=== PATIENT | male | born 1970 | race Caucasian/White ===

== ENCOUNTER 2019-10-26 12:03 | Inpatient (IN) ==
[2019-10-26] MEDS ORDERED: 0.2 MICRON FILTER SET 1 EA IV ONE (12:15)
[2019-10-26] MEDS ORDERED: SODIUM CHLORIDE 0.9% 1000ML 1,000 ML IV SCH (12:15)
[2019-10-26] MEDS ORDERED: AMIODARONE / D5W 360 MG/200 ML BAG IV SCH (12:15)
--- NOTE | 2019-10-26 12:21 | Emergency Department Note ---
Impression & Plan Syncope, Sinus pause, Sick sinus syndrome ED Provider Note NAME: HAWA SHAH AGE: 49 SEX: M : 1970 ARRIVES VIA: Ambulance INFORMANT: Patient, ED PROVIDER(S): Marky Magana MD Chief Complaint: Syncope HPI: Patient recently traveled from [place] via car and is visiting family locally. The patient has had 3 episodes of syncope today. The patient initially try to get a shower and had an episode of syncope that was brief. Witnessed syncope for several seconds by BLS and then had a subsequent syncopal event prior to arrival in route. The patient was reportedly apneic and pulseless. CPR was initiated and the patient did have resumption of spontaneous circulation. I did advise loading with amiodarone. Patient only has a history of hypertension and back pain for which she takes lisinopril and Mobic respectively. Patient denies any leg swelling, chest pains, shortness of breath currently. Patient reportedly has had some diaphoresis associated dry cough and fatigue. ROS: See HPI for pertinent positives and negatives. A total of 10 systems were reviewed and otherwise negative. Past medical history: See below Surgical history: See below Social history: See below Physical Exam: GENERAL: NAD, non-toxic. EYE EXAM: Normal conjunctiva. PERRL, no anisocoria and EOM's grossly intact w/o pain. NECK: Supple, no nuchal rigidity, no adenopathy, non-tender. No signs of meningismus. LUNGS: Clear to auscultation. Normal chest wall mechanics. HEART: NSR, no MRG. ABDOMEN: Abdomen soft, non-tender, normo-active bowel sounds, no masses, no rebound or guarding. BACK: No CVA TTP. SKIN: No rashes and no bruising. UPPER EXTREMITIES: Upper extremities are grossly normal. LOWER EXTREMITIES: Grossly normal, no edema. Negative Homans sign bilaterally. NEURO EXAM: A&O x3, cranial nerves II-XII grossly intact, normal speech, moves all 4 extremities on command w/o issue. Differential diagnoses: Vasovagal event, dehydration, infection, hypoglycemia, electrolyte abnormalities, cardiac sources, intracerebral event, pulmonary embolism, seizure, toxicologic, neurologic, as well as other pathologies. Course: Patient was seen and evaluated the bedside. Full history physical exam was performed. EKG: Indication: Syncope Prehospital EKG was read as sinus bradycardia rate of 52 with normal intervals and axis, possible trace elevation in aVF but not in contiguous leads and associ ated T wave inversion in lead III. Repeat EKG in hospital at 12:24 PM. Sinus bradycardia, rate of 59, normal intervals, normal axis, no obvious ST changes, T WI in lead III. No obvious arrhythmia. No dropped beats noted. Imaging Studies: Radiology results as stated below per my review in the radiologist's interpretation: XR chest 1V portable CLINICAL HISTORY: Chest Pain dyspnea COMPARISON STUDY: No previous studies for comparison. FINDINGS: The bones soft tissues and hemidiaphragms are normal. The cardiomediastinal silhouette is normal. The lungs are clear. The pulmonary vasculature is normal. IMPRESSION: Negative chest. ACT 112: Negative or not required by law. The above report was generated using voice recognition software. It may contain grammatical, syntax or spelling errors. Electronically signed by: Ever Holden M.D. 10/26/2019 1:05 PM Dictated: 10/26/19 1304 Transcribed: 10/26/19 1304 Cardiac monitoring: An order was placed for continuous cardiac monitoring. The monitor shows a rate of 62 with sinus rhythm. MDM: Patient was seen in [facility] at the bedside. The patient did have blood work completed immediately along with a [id number] BMP and troponin. Pads were placed. The patient is currently asymptomatic. The patient has a normal white count H&H and platelet count. The patient's kidney function is unremarkable. Borderline elevated blood glucose but not a fasting. Phosphorus is low which is ordered for replacement. Troponin is und etectable. TSH is not elevated. I did immediately speak to Dr. Lucas James cardiology who kindly came and evaluated patient the bedside. We did discuss any additional treatments which we would hold off at this time. Labs currently pending. Echo has been ordered. I did speak the on-call hospitalist Dr. Shahid who agreed to evaluate treat the patient. The patient was subsequently mated to the medicine service for concern for sick sinus syndrome. Critical Care: I have personally spent 82 minutes of critical care time in direct management of this patient. This includes bedside care, interpretation of diagnostic studies, and testing, discussion with consultants, patient, and family members, and other require inpatient management activities. This 82 minutes is in excess of all s eparately billable procedures. Past Med/Surg History Medical History Back pain H/O: HTN (hypertension) Surgical History H/O: vasectomy No pertinent past surgical history Family History Father Stroke Grandfather Heart disease Social History Preferred Language: Panamanian Communication Ability: Effective Correctional Officer Required: No Beliefs That Will Affect Care: None Current Living Situation: Spouse and Family current occupational status: employed current occupation: Works at [employer] Other Information That Helps Us Care for You: No Feels Safe at Home: Yes Safety Concerns: Feels Safe At This Time Smoking Status: Former smoker Hx Alcohol Use: No Hx Substance Use: No Allergies Allergies Allergy/AdvReac Type Severity Reaction Status Date / Time No Known Allergies Allergy Unverified 10/26/19 13:28 Home Meds Home Medications Medication Instructions Recorded Confirmed acetaminophen [Tylenol] 650 mg PO QAM 10/26/19 10/26/19 lisinopril 40 mg PO QAM 10/26/19 10/26/19 meloxicam 15 mg PO QAM 10/26/19 10/26/19 Results & Data (ED) Vital Signs Vital Signs - 24 hr 10/26/19 12:14 10/26/19 12:18 10/26/19 12:26 Temperature 36.7 C Temperature Source Oral Pulse Rate 76 52 L 53 L Pulse Rate from SpO2 Sensor 52 L 53 L Pulse Rhythm Regular Pulse Strength Normal Respiratory Rate 18 Respiratory Effort / Characteristics Non-Labored Spontaneous Respiratory Depth Normal Blood Pressure 116/74 106/68 109/64 Blood Pressure Mean 88 74 77 Blood Pressure Position Lying Pulse Oximetry 98 99 98 Oxygen Delivery Method Nasal Cannula Oxygen Flow Rate 2 Sepsis Recent Fever Within 48 Hours No Sepsis New/Unexplained Change in Mental Status No Sepsis Action Taken by Nursing No Action Required 10/26/19 12:30 10/26/19 12:35 10/26/19 12:40 Temperature Temperature Source Pulse Rate 69 65 68 Pulse Rate from SpO2 Sensor 69 66 68 Pulse Rhythm Pulse Strength Respiratory Rate Respiratory Effort / Characteristics Respiratory Depth Blood Pressure 112/68 116/71 117/71 Blood Pressure Mean 79 82 84 Blood Pressure Position Pulse Oximetry 100 99 100 Oxygen Delivery Method Nasal Cannula Nasal Cannula Oxygen Flow Rate 2 2 Sepsis Recent Fever Within 48 Hours Sepsis New/Unexplained Change in Mental Status Sepsis Action Taken by Nursing 10/26/19 12:45 10/26/19 12:50 10/26/19 12:55 Temperature Temperature Source Pulse Rate 64 66 62 Pulse Rate from SpO2 Sensor 64 66 63 Pulse Rhythm Pulse Strength Respiratory Rate Respiratory Effort / Characteristics Respiratory Depth Blood Pressure 114/69 109/71 113/69 Blood Pressure Mean 76 82 80 Blood Pressure Position Pulse Oximetry 100 100 100 Oxygen Delivery Method Nasal Cannula Nasal Cannula Oxygen Flow Rate 2 2 Sepsis Recent Fever Within 48 Hours Sepsis New/Unexplained Change in Mental Status Sepsis Action Taken by Nursing 10/26/19 13:00 10/26/19 13:05 10/26/19 13:10 Temperature Temperature Source Pulse Rate 65 79 64 Pulse Rate from SpO2 Sensor 63 79 65 Pulse Rhythm Pulse Strength Respiratory Rate Respiratory Effort / Characteristics Respiratory Depth Blood Pressure 123/76 120/74 115/71 Blood Pressure Mean 96 90 82 Blood Pressure Position Pulse Oximetry 100 93 100 Oxygen Delivery Method Oxygen Flow Rate Sepsis Recent Fever Within 48 Hours Sepsis New/Unexplained Change in Mental Status Sepsis Action Taken by Nursing 10/26/19 13:15 10/26/19 13:20 10/26/19 13:25 Temperature Temperature Source Pulse Rate 77 66 61 Pulse Rate from SpO2 Sensor 77 68 62 Pulse Rhythm Pulse Strength Respiratory Rate Respiratory Effort / Characteristics Respiratory Depth Blood Pressure 111/67 112/68 110/70 Blood Pressure Mean 76 74 79 Blood Pressure Position Pulse Oximetry 98 100 100 Oxygen Delivery Method Oxygen Flow Rate Sepsis Recent Fever Within 48 Hours Sepsis New/Unexplained Change in Mental Status Sepsis Action Taken by Nursing 10/26/19 13:30 10/26/19 13:35 10/26/19 13:40 Temperature Temperature Source Pulse Rate 66 60 57 L Pulse Rate from SpO2 Sensor 64 60 59 L Pulse Rhythm Pulse Strength Respiratory Rate Respiratory Effort / Characteristics Respiratory Depth Blood Pressure 110/69 111/65 107/66 Blood Pressure Mean 81 73 74 Blood Pressure Position Pulse Oximetry 98 100 100 Oxygen Delivery Method Oxygen Flow Rate Sepsis Recent Fever Within 48 Hours Sepsis New/Unexplained Change in Mental Status Sepsis Action Taken by Nursing 10/26/19 13:45 10/26/19 13:50 10/26/19 13:55 Temperature Temperature Source Pulse Rate 61 60 60 Pulse Rate from SpO2 Sensor 62 60 60 Pulse Rhythm Pulse Strength Respiratory Rate Respiratory Effort / Characteristics Respiratory Depth Blood Pressure 109/66 109/68 113/68 Blood Pressure Mean 72 79 79 Blood Pressure Position Pulse Oximetry 100 100 100 Oxygen Delivery Method Oxygen Flow Rate Sepsis Recent Fever Within 48 Hours Sepsis New/Unexplained Change in Mental Status Sepsis Action Taken by Nursing 10/26/19 14:00 10/26/19 14:05 10/26/19 14:10 Temperature Temperature Source Pulse Rate 63 74 72 Pulse Rate from SpO2 Sensor 64 75 74 Pulse Rhythm Pulse Strength Respiratory Rate Respiratory Effort / Characteristics Respiratory Depth Blood Pressure 122/70 123/76 125/73 Blood Pressure Mean 82 84 89 Blood Pressure Position Pulse Oximetry 100 100 100 Oxygen Delivery Method Oxygen Flow Rate Sepsis Recent Fever Within 48 Hours Sepsis New/Unexplained Change in Mental Status Sepsis Action Taken by Usp Medications Current Medication List: was personally reviewed by me Laboratory Data Attestation: I reviewed the patient's lab results. Result diagrams: 10/26/19 12:10 10/26/19 12:10 Lab Results 10/26/19 10/26/19 10/26/19 Range/Units 12:10 12:10 12:10 WBC 9.24 (4.8-10.8) K/uL RBC 4.94 (4.7-6.1) M/uL Hgb 15.3 (14.0-18.0) g/dL POC Hgb (14.0-18.0) g/dl Hct 43.8 (42-52) % POC Hct (42-52) % MCV 88.7 (80-100) fL MCH 31.0 (25-34) pg MCHC 34.9 (32-36) g/dL RDW Std Deviation 43.4 (36.4-46.3) fL RDW Coeff of Pastora 13.3 (11.5-14.5) % Plt Count 239 (130-400) K/uL MPV 10.7 H (7.4-10.4) fL Immature Gran % (Auto) 0.3 % Neut % (Auto) 84.7 % Lymph % (Auto) 11.8 % Stephenson % (Auto) 2.9 % Eos % (Auto) 0.2 % Baso % (Auto) 0.1 % Neut # (Auto) 7.82 H (1.4-6.5) K/uL Lymph # (Auto) 1.09 L (1.2-3.4) K/uL Stephenson # (Auto) 0.27 (0.11-0.59) K/uL Eos # (Auto) 0.02 (0-0.5) K/uL Baso # (Auto) 0.01 (0-0.2) K/uL Immature Gran # (Auto) 0.03 H (0.00-0.02) K/uL PT 10.6 (9.0-12.0) Seconds INR 1.0 (0.9-1.1) APTT 24.6 (21.0-31.0) Seconds PTT Ratio 0.9 POC Sodium (135-144) mmol/L Sodium 142 (136-145) mmol/L POC Potassium (3.3-5.0) mmol/L Potassium 4.0 (3.5-5.1) mmol/L POC Chloride (101-112) mmol/L Chloride 109 H (98-107) mmol/L Carbon Dioxide 27 (21-32) mmol/L POC Total CO2 (24-31) mmol/L Anion Gap 6.0 (3-11) POC Anion Gap (16-25) mmol/L POC BUN (7-18) mg/dl BUN 15 (7-18) mg/dl Creatinine 1.13 (0.6-1.4) mg/dl POC Creatinine (0.6-1.3) mg/dl Est Cr Clr Drug Dosing Not Reportable Est GFR ( Amer) 88.6 Est GFR (Non-Af Amer) 76.4 BUN/Creatinine Ratio 13.2 (10-20) Glucose 149 H (70-99) mg/dl POC Glucose (other) (70-99) mg/dl Calcium 9.0 (8.5-10.1) mg/dl POC Ioniz Calcium William (1.12-1.32) mmol/l Phosphorus 1.7 L (2.5-4.9) mg/dl Magnesium 2.1 (1.8-2.4) mg/dl Total Bilirubin 0.4 (0.2-1) mg/dl AST 14 L (15-37) U/L ALT 36 (12-78) U/L Alkaline Phosphatase 59 (45-117) U/L POC Troponin I (0-0.045) ng/ml Troponin I < 0.015 (0-0.045) ng/ml Total Protein 7.5 (6.4-8.2) gm/dl Albumin 3.8 (3.4-5.0) gm/dl Globulin 3.7 (2.5-4.0) gm/dl Albumin/Globulin Ratio 1.0 (0.9-2) Lipase 83 (73-393) U/L TSH (0.300-4.500) uIu/ml Lyme Disease IgG Ab (Negative) Lyme Disease IgM Ab (Negative) COVID-19 PCR (Negative) 10/26/19 10/26/19 10/26/19 Range/Units 12:10 12:10 12:16 WBC (4.8-10.8) K/uL RBC (4.7-6.1) M/uL Hgb (14.0-18.0) g/dL POC Hgb (14.0-18.0) g/dl Hct (42-52) % POC Hct (42-52) % MCV (80-100) fL MCH (25-34) pg MCHC (32-36) g/dL RDW Std Deviation (36.4-46.3) fL RDW Coeff of Pastora (11.5-14.5) % Plt Count (130-400) K/uL MPV (7.4-10.4) fL Immature Gran % (Auto) % Neut % (Auto) % Lymph % (Auto) % Stephenson % (Auto) % Eos % (Auto) % Baso % (Auto) % Neut # (Auto) (1.4-6.5) K/uL Lymph # (Auto) (1.2-3.4) K/uL Stephenson # (Auto) (0.11-0.59) K/uL Eos # (Auto) (0-0.5) K/uL Baso # (Auto) (0-0.2) K/uL Immature Gran # (Auto) (0.00-0.02) K/uL PT (9.0-12.0) Seconds INR (0.9-1.1) APTT (21.0-31.0) Seconds PTT Ratio POC Sodium (135-144) mmol/L Sodium (136-145) mmol/L POC Potassium (3.3-5.0) mmol/L Potassium (3.5-5.1) mmol/L POC Chloride (101-112) mmol/L Chloride (98-107) mmol/L Carbon Dioxide (21-32) mmol/L POC Total CO2 (24-31) mmol/L Anion Gap (3-11) POC Anion Gap (16-25) mmol/L POC BUN (7-18) mg/dl BUN (7-18) mg/dl Creatinine (0.6-1.4) mg/dl POC Creatinine (0.6-1.3) mg/dl Est Cr Clr Drug Dosing Est GFR ( Amer) Est GFR (Non-Af Amer) BUN/Creatinine Ratio (10-20) Glucose (70-99) mg/dl POC Glucose (other) (70-99) mg/dl Calcium (8.5-10.1) mg/dl POC Ioniz Calcium William (1.12-1.32) mmol/l Phosphorus (2.5-4.9) mg/dl Magnesium (1.8-2.4) mg/dl Total Bilirubin (0.2-1) mg/dl AST (15-37) U/L ALT (12-78) U/L Alkaline Phosphatase (45-117) U/L POC Troponin I (0-0.045) ng/ml Troponin I (0-0.045) ng/ml Total Protein (6.4-8.2) gm/dl Albumin (3.4-5.0) gm/dl Globulin (2.5-4.0) gm/dl Albumin/Globulin Ratio (0.9-2) Lipase (73-393) U/L TSH 0.936 (0.300-4.500) uIu/ml Lyme Disease IgG Ab Negative (Negative) Lyme Disease IgM Ab Negative (Negative) COVID-19 PCR NEGATIVE (Negative) 10/26/19 10/26/19 Range/Units 12:23 12:23 WBC (4.8-10.8) K/uL RBC (4.7-6.1) M/uL Hgb (14.0-18.0) g/dL POC Hgb 15.0 (14.0-18.0) g/dl Hct (42-52) % POC Hct 44 (42-52) % MCV (80-100) fL MCH (25-34) pg MCHC (32-36) g/dL RDW Std Deviation (36.4-46.3) fL RDW Coeff of Pastora (11.5-14.5) % Plt Count (130-400) K/uL MPV (7.4-10.4) fL Immature Gran % (Auto) % Neut % (Auto) % Lymph % (Auto) % Stephenson % (Auto) % Eos % (Auto) % Baso % (Auto) % Neut # (Auto) (1.4-6.5) K/uL Lymph # (Auto) (1.2-3.4) K/uL Stephenson # (Auto) (0.11-0.59) K/uL Eos # (Auto) (0-0.5) K/uL Baso # (Auto) (0-0.2) K/uL Immature Gran # (Auto) (0.00-0.02) K/uL PT (9.0-12.0) Seconds INR (0.9-1.1) APTT (21.0-31.0) Seconds PTT Ratio POC Sodium 142 (135-144) mmol/L Sodium (136-145) mmol/L POC Potassium 3.9 (3.3-5.0) mmol/L Potassium (3.5-5.1) mmol/L POC Chloride 104 (101-112) mmol/L Chloride (98-107) mmol/L Carbon Dioxide (21-32) mmol/L POC Total CO2 25 (24-31) mmol/L Anion Gap (3-11) POC Anion Gap 17.0 (16-25) mmol/L POC BUN 16 (7-18) mg/dl BUN (7-18) mg/dl Creatinine (0.6-1.4) mg/dl POC Creatinine 1.0 (0.6-1.3) mg/dl Est Cr Clr Drug Dosing Est GFR ( Amer) Est GFR (Non-Af Amer) BUN/Creatinine Ratio (10-20) Glucose (70-99) mg/dl POC Glucose (other) 154 H (70-99) mg/dl Calcium (8.5-10.1) mg/dl POC Ioniz Calcium William 1.25 (1.12-1.32) mmol/l Phosphorus (2.5-4.9) mg/dl Magnesium (1.8-2.4) mg/dl Total Bilirubin (0.2-1) mg/dl AST (15-37) U/L ALT (12-78) U/L Alkaline Phosphatase (45-117) U/L POC Troponin I < 0.03 (0-0.045) ng/ml Troponin I (0-0.045) ng/ml Total Protein (6.4-8.2) gm/dl Albumin (3.4-5.0) gm/dl Globulin (2.5-4.0) gm/dl Albumin/Globulin Ratio (0.9-2) Lipase (73-393) U/L TSH (0.300-4.500) uIu/ml Lyme Disease IgG Ab (Negative) Lyme Disease IgM Ab (Negative) COVID-19 PCR (Negative) Administered Medications Potassium Phosphate 21 mmol/ (Sodium Chloride) 507 mls @ 88 mls/hr IV 1315 ONE Stop: 10/26/19 19:00 Last Admin: 10/26/19 13:18 Dose: 88 mls/hr Documented by: [id number] Potassium Chloride/Sodium Chloride (Normal Saline W/20 Meq Kcl) 20 meq in 1,000 mls @ 100 mls/hr IV .Q10H NNAMDI Stop: 11/25/19 16:59 Last Admin: 10/26/19 16:42 Dose: 100 mls/hr Documented by: [id number] Discontinued Medications Epinephrine HCl (Epinephrine) Confirm Administered Dose 1 mg IV .STK-MED ONE Stop: 10/26/19 12:27 Last Admin: 10/26/19 15:26 Dose: Not Given Documented by: [id number] Amiodarone HCl/Dextrose (Nexterone / D5w) 360 mg in 200 mls @ 33.3 mls/hr IV .Q6H1M NNAMDI Stop: 11/25/19 12:14 Last Admin: 10/26/19 13:32 Dose: Not Given Documented by: [id number] Sodium Chloride (Nss 1000ml) 1,000 mls @ 999 mls/hr IV .Q1H1M NNAMDI Stop: 10/26/19 13:15 Last Infusion: 10/26/19 13:26 Dose: 0 mls/hr Documented by: [id number] Admin: 10/26/19 12:26 Dose: 999 mls/hr Documented by: [id number] Magnesium Sulfate/Dextrose (Magnesium Sulfate / D5w) Confirm Administered Dose 1 gm IV .STK-MED ONE Stop: 10/26/19 12:27 Last Admin: 10/26/19 15:26 Dose: Not Given Documented by: [id number] Sodium Phosphate (Sodium Phosphate Replacement) 21 mmol IV NOW STA Stop: 10/26/19 12:50 Last Admin: 10/26/19 15:40 Dose: 21 mmol Documented by: [id number] Discharge Plan Visit Data *Final* Discharge Date/Time: 10/26/19 15:14 Chief Complaint: Syncope Stated Complaint: syncope/diaphoretic ED Provider: Marky Magana Discharge Problem: Syncope, Sinus pause, Sick sinus syndrome Patient Disposition: Admitted As Inpatient Discharge Instructions Interventions: ED Discharge Assessment Last Done: 10/26/19 15:14 Discharge Problem: Syncope Qualifiers: Syncope type: unspecified Qualified Code(s): R55 - Syncope and collapse
[2019-10-26 12:23] LABS: Basophils # (auto) 0.01 K/uL (0-0.2); Basophils % (auto) 0.1 %; Eosinophils # (auto) 0.02 K/uL (0-0.5); Eosinophils % (auto) 0.2 %; Hematocrit (blood only) 43.8 % (42-52); Hemoglobin 15.3 g/dL (14.0-18.0); Immature Granulocytes # (auto) 0.03 K/uL (0.00-0.02); Immature Granulocytes % (auto) 0.3 %; Lymphocytes # (auto) 1.09 K/uL (1.2-3.4); Lymphocytes % (auto) 11.8 %; Mean Corpuscular Hgb Conc 34.9 g/dL (32-36); Mean Corpuscular Volume 88.7 fL (80-100); Mean Platelet Volume 10.7 fL (7.4-10.4); Monocytes # (auto) 0.27 K/uL (0.11-0.59); Monocytes % (auto) 2.9 %; Neutrophils # (auto) 7.82 K/uL (1.4-6.5); Neutrophils % (auto) 84.7 %; Platelet Count 239 K/uL (130-400); RDW Coefficient of Variation 13.3 % (11.5-14.5); RDW Standard Deviation 43.4 fL (36.4-46.3); Red Blood Count 4.94 M/uL (4.7-6.1); White Blood Count 9.24 K/uL (4.8-10.8)
[2019-10-26] MEDS ORDERED: MAGNESIUM SULFATE 1GM / D5W BAG IV ONE (12:26)
[2019-10-26 12:33] LABS: Partial Thromboplastin Ratio 0.9; Partial Thromboplastin Time 24.6 Seconds (21.0-31.0); Prothrombin Time 10.6 Seconds (9.0-12.0)
[2019-10-26 12:38] LABS: Alanine Aminotransferase 36 U/L (12-78); Albumin Level 3.8 gm/dl (3.4-5.0); Aspartate Aminotransferase 14 U/L (15-37); BUN Creatinine Ratio 13.2 (10-20); Blood Urea Nitrogen 15 mg/dl (7-18); Carbon Dioxide 27 mmol/L (21-32); Chloride 109 mmol/L (98-107); Est GFR (African American) 88.6; Est GFR (Non-African American) 76.4; Glucose 149 mg/dl (70-99); Lipase 83 U/L (73-393); Magnesium 2.1 mg/dl (1.8-2.4); Sodium 142 mmol/L (136-145)
[2019-10-26 12:44] LABS: Alkaline Phosphatase 59 U/L (45-117); Bilirubin,Total 0.4 mg/dl (0.2-1); Globulin 3.7 gm/dl (2.5-4.0); Phosphorus 1.7 mg/dl (2.5-4.9); Total Protein 7.5 gm/dl (6.4-8.2); Troponin I < 0.015 ng/ml (0-0.045)
[2019-10-26 12:48] LABS: iSTAT Ionized Calcium 1.25 mmol/l (1.12-1.32); iSTAT Potassium 3.9 mmol/L (3.3-5.0)
[2019-10-26] MEDS ORDERED: SODIUM PHOSPHATE 3 MMOL/1 ML INFUSION IV STA (12:49)
--- NOTE | 2019-10-26 13:06 | XRay Report ---
XR chest 1V portable CLINICAL HISTORY: Chest Pain dyspnea COMPARISON STUDY: No previous studies for comparison. FINDINGS: The bones soft tissues and hemidiaphragms are normal. The cardiomediastinal silhouette is n ormal. The lungs are clear. The pulmonary vasculature is normal. IMPRESSION: Negative chest. ACT 112: Negative or not required by law. The above report was generated using voice recognition software. It may contain grammatical, syntax or spelling errors. Electronically signed by: Ever Holden M.D. 10/26/2019 1:05 PM
[2019-10-26] MEDS ORDERED: POTASSIUM PHOSPHATE 21 MMOL in SODIUM CHLORIDE 0.9% 500 ML IV ONE (13:15)
--- NOTE | 2019-10-26 13:18 | Cardiology Consultation ---
Date of Consultation October 26, 2019 Assessment & Plan (1) Sinus pause: (2) Syncope: Patient presents with several episodes of syncope and near syncope at home. EKG is normal though telemetry demonstrated transient sinus pause with marked bradycardia. No cardiac symptoms though awoke diaphoretic this morning. Has had approximately 6 several days history of preceding cold-like symptoms of malaise, low-grade temperature No severe pain or overt inciting cause. EKGs and enzymes not reflective of acute ischemia. Patient normotensive since presentation Plan maintain telemetry with external pacing patches in place. Agree with laboratory studies as ordered including TSH and Lyme screen. COVID screen pending Will need chest x-ray and echocardiogram as above lab studies clear We will follow in hospital History of Present Illness Reason for Consultation: Syncope, bradycardia Requesting Physician: Dr. Marky Magana History of Present Illness Patient is a 49-year-old male without prior history of cardiac disease underlying issues of chronic back pain and hypertension only. Patient presents now noting having traveled from home in [place] to visit family in the [facility] area. Patient notes last week having early symptoms of cold low-grade fever malaise. Yesterday experienced symptoms of a transient near syncopal event with symptoms resolving on lying down. Today patient awakened with diaphoresis and attempted to proceed to shower only to suffer syncopal event with loss of consciousness. Per report patient had a witnessed syncopal event in route and received transient CPR with spontaneous recovery. Patient did receive single bolus of amiodarone. Prehospital EKG with normal tracing. On ER presentation patient had transient sinus exit block with profound bradycardia and single junctional escape beat with spontaneous recovery. Patient notes no current complaints of chest pain no recent shortness of breath. No prior change in exercise capacity no ambulatory symptoms or discomfort. Physically active about home and job without specific limitation. Notes no rash or skin lesions. No observed tick exposure. No prior history of syncope TIA or stroke. No history of bleeding difficulties. No melena medication dysuria hematuria. Appetite and weight have been generally stable. No headaches or visual changes no dysphasia. Current EKG sinus bradycardia with normal ST segments no Q waves. Normal AV conduction. Initial laboratory studies unrevealing, troponin negative Home medications, Mobic and lisinopril Allergies Allergy/AdvReac Type Severity Reaction Status Date / Time No Known Allergies Allergy Unverified 10/26/19 13:28 Home Medications Home Medications Medication Instructions Recorded Confirmed Type acetaminophen [Tylenol] 650 mg PO QAM 10/26/19 10/26/19 History lisinopril 40 mg PO QAM 10/26/19 10/26/19 History meloxicam 15 mg PO QAM 10/26/19 10/26/19 History Patient History Medical History Back pain H/O: HTN (hypertension) Surgical History H/O: vasectomy No pertinent past surgical history Family History Father Stroke Grandfather Heart disease Social History Preferred Language: Belarusian Communication Ability: Effective Cna Gna Required: No Beliefs That Will Affect Care: None Current Living Situation: Spouse and Family current occupational status: employed current occupation: Works at [employer] Other Information That Helps Us Care for You: No Feels Safe at Home: Yes Safety Concerns: Feels Safe At This Time Smoking Status: Former smoker Hx Alcohol Use: No Hx Substance Use: No Physical Exam Constitutional: WD/WN, vitals as above no acute distress Eyes: PERRL, conjunctivae normal, anicteric sclerae ENMT: external ear and nose normal, oropharynx normal Neck: trachea midline, no thyromegaly Respiratory: normal respiratory effort, lungs clear to auscultation Cardiovascular: Rate/Rhythm: regular rate and regular rhythm Heart Sounds: normal S1 and normal S2; no gallop and no murmur Palpation: normal PMI Vessels: normal carotid upstroke and radial pulses present; no JVD and no carotid bruit Extremities: no edema Gastrointestinal (Abdomen): normal bowel sounds, soft, nontender, no hepatosplenomegaly Musculoskeletal: no cyanosis or clubbing, extremities motor strength 5/5 Skin: no rashes, warm and dry Neurologic: PERRL, EOMI, accommodation nl, no face palsy, no dysarthria Psychiatric: A+Ox3, euthymic affect Results & Data ([facility]) Vital Signs (Past 12 Hours) Vital Signs Temp Pulse Resp BP Pulse Ox 07/14/20 12:50 66 109/71 100 07/14/20 12:45 64 114/69 100 10/26/19 12:40 68 117/71 100 10/26/19 12:35 65 116/71 99 10/26/19 12:30 69 112/68 100 10/26/19 12:26 53 L 109/64 98 10/26/19 12:18 52 L 106/68 99 10/26/19 12:14 36.7 C 76 18 116/74 98 Laboratory Results Laboratory Results - last 24 hr 10/26/19 10/26/19 10/26/19 12:10 12:10 12:10 WBC 9.24 RBC 4.94 Hgb 15.3 POC Hgb Hct 43.8 POC Hct MCV 88.7 MCH 31.0 MCHC 34.9 RDW Std Deviation 43.4 RDW Coeff of Pastora 13.3 Plt Count 239 MPV 10.7 H Immature Gran % (Auto) 0.3 Neut % (Auto) 84.7 Lymph % (Auto) 11.8 [place] % (Auto) 2.9 Eos % (Auto) 0.2 Baso % (Auto) 0.1 Neut # (Auto) 7.82 H Lymph # (Auto) 1.09 L [place] # (Auto) 0.27 Eos # (Auto) 0.02 Baso # (Auto) 0.01 Immature Gran # (Auto) 0.03 H PT 10.6 INR 1.0 APTT 24.6 PTT Ratio 0.9 POC Sodium Sodium 142 POC Potassium Potassium 4.0 POC Chloride Chloride 109 H Carbon Dioxide 27 POC Total CO2 Anion Gap 6.0 POC Anion Gap POC BUN BUN 15 Creatinine 1.13 POC Creatinine Est Cr Clr Drug Dosing Not Reportable Est GFR ( Amer) 88.6 Est GFR (Non-Af Amer) 76.4 BUN/Creatinine Ratio 13.2 Glucose 149 H POC Glucose (other) Calcium 9.0 POC Ioniz Calcium William Phosphorus 1.7 L Magnesium 2.1 Total Bilirubin 0.4 AST 14 L ALT 36 Alkaline Phosphatase 59 POC Troponin I Troponin I < 0.015 Total Protein 7.5 Albumin 3.8 Globulin 3.7 Albumin/Globulin Ratio 1.0 Lipase 83 TSH Lyme Disease IgG Ab Lyme Disease IgM Ab COVID-19 PCR 10/26/19 10/26/19 10/26/19 12:10 12:10 12:16 WBC RBC Hgb POC Hgb Hct POC Hct MCV MCH MCHC RDW Std Deviation RDW Coeff of Past[place] Plt Count MPV Immature Gran % (Auto) Neut % (Auto) Lymph % (Auto) [place] % (Auto) Eos % (Auto) Baso % (Auto) Neut # (Auto) Lymph # (Auto) [place] # (Auto) Eos # (Auto) Baso # (Auto) Immature Gran # (Auto) PT INR APTT PTT Ratio POC Sodium Sodium POC Potassium Potassium POC Chloride Chloride Carbon Dioxide POC Total CO2 Anion Gap POC Anion Gap POC BUN BUN Creatinine POC Creatinine Est Cr Clr Drug Dosing Est GFR ( Amer) Est GFR (Non-Af Amer) BUN/Creatinine Ratio Glucose POC Glucose (other) Calcium POC Ioniz Calcium William Phosphorus Magnesium Total Bilirubin AST ALT Alkaline Phosphatase POC Troponin I Troponin I Total Protein Albumin Globulin Albumin/Globulin Ratio Lipase TSH Pending Lyme Disease IgG Ab Pending Lyme Disease IgM Ab Pending COVID-19 PCR Pending 10/26/19 10/26/19 12:23 12:23 WBC RBC Hgb POC Hgb 15.0 Hct POC Hct 44 MCV MCH MCHC RDW Std Deviation RDW Coeff of Past[place] Plt Count MPV Immature Gran % (Auto) Neut % (Auto) Lymph % (Auto) [place] % (Auto) Eos % (Auto) Baso % (Auto) Neut # (Auto) Lymph # (Auto) [place] # (Auto) Eos # (Auto) Baso # (Auto) Immature Gran # (Auto) PT INR APTT PTT Ratio POC Sodium 142 Sodium POC Potassium 3.9 Potassium POC Chloride 104 Chloride Carbon Dioxide POC Total CO2 25 Anion Gap POC Anion Gap 17.0 POC BUN 16 BUN Creatinine POC Creatinine 1.0 Est Cr Clr Drug Dosing Est GFR ( Amer) Est GFR (Non-Af Amer) BUN/Creatinine Ratio Glucose POC Glucose (other) 154 H Calcium POC Ioniz Calcium William 1.25 Phosphorus Magnesium Total Bilirubin AST ALT Alkaline Phosphatase POC Troponin I < 0.03 Troponin I Total Protein Albumin Globulin Albumin/Globulin Ratio Lipase TSH Lyme Disease IgG Ab Lyme Disease IgM Ab COVID-19 PCR
--- NOTE | 2019-10-26 13:33 | History & Physical Report ---
Date of Service October 26, 2019 Assessment & Plan (1) Sick sinus syndrome: Recurrent Syncope Likely sick sinus syndrome CT head :Pending Monitor in Telemetry for arrhythmia Check Orthostatics Gentle IV fluids Check ECHO, Carotid Ultrasound, EEG Trend cardiac enzymes Fall precautions Appreciate Cardiology Input Avoid AV lior blocking agents Pacer pads EKG in a.m. Monitor electrolytes and replace as needed TSH, Lyme screen pending Urine toxicology pending Hypophosphatemia Replace phosphate Monitor Flulike symptoms Code screen negative Monitor Hypertension Stable Hold lisinopril for now DVT Px: Heparin SQ Code Status Full Code Disposition Monitor in Telemetry History of Present Illness Chief Complaint: Recurrent Syncope Primary Care Provider: NO PCP Patient is a 49-year-old male with history of hypertension, chronic lower back pain and no other significant medical history presents with history of recurrent syncopal episodes. Patient states having flulike symptoms--dry cough, low-grade fever, malaise for the past 1 week. He traveled from [place] to visit family. Patient had a syncopal episode yesterday after using bathroom. He noticed to have developed nausea prior to syncopal. The syncopal event yesterday, was and noticed. Patient had significant diaphoresis this morning. This morning patient tried to wash himself and had another syncopal episode which lasted for about 5 minutes as per family. Had recurrence of nausea prior to syncopal episode. No confusion post syncopal episode noted. 20 minutes after the syncopal episode this morning, he had another syncopal episode which lasted for about 2 to 3 seconds. Patient was found to be apneic, pulseless and also was noted to have transient V. fib as per EMS/ER physician and had CPR which resulted in spontaneous recovery. He was given amiodarone bolus while in ED. He was noted to have 2 episodes of pauses while in ED which spontaneously recovered. Denies any history of chest pain, SOB, palpitations, dizziness, hemoptysis, headache, change in vision, Incontinence, slurred speech, facial deformity, vomiting, abdominal pain, diarrhea, change in appetite, dysuria, hematuria, sick contact, recent change in medications. Allergies Allergy/AdvReac Type Severity Reaction Status Date / Time No Known Allergies Allergy Unverified 10/26/19 13:28 Home Medications Home Medications Medication Instructions Recorded Confirmed Type acetaminophen [Tylenol] 650 mg PO QAM 10/26/19 10/26/19 History lisinopril 40 mg PO QAM 10/26/19 10/26/19 History meloxicam 15 mg PO QAM 10/26/19 10/26/19 History Past Med/Surg History Medical History Back pain H/O: HTN (hypertension) Surgical History H/O: vasectomy No pertinent past surgical history Family History Father Stroke Grandfather Heart disease Social History Preferred Language: Yakut Communication Ability: Effective Chief Radiologic Technologist Required: No Beliefs That Will Affect Care: None Current Living Situation: Spouse and Family current occupational status: employed current occupation: Works at [employer] Other Information That Helps Us Care for You: No Feels Safe at Home: Yes Safety Concerns: Feels Safe At This Time Smoking Status: Former smoker Hx Alcohol Use: No Hx Substance Use: No Review of Systems Review of Systems: All systems reviewed & are unremarkable except as noted in HPI & below Physical Exam Physical Exam: Physical Exam: Vitals signs as noted above General Appearance:Moderately built and nourished, no apparent distress Head: normocephalic, Atraumatic Eyes: normal inspection, EOMI Neck: supple, Trachea midline Respiratory/Chest: Normal breath sounds, CTA, No accessory muscle use Cardiovascular: S1, S2, No murmur Abdomen/GI:Soft, Non tender, Bowel sounds present Extremities/Musculoskelatal:normal inspection, no edema Neurologic/Psych:AAOX3, grossly no focal neurological deficits Skin: normal color, warm Results & Data Results & Data ([facility]) Vital Signs (Past 12 Hours) Vital Signs Temp Pulse Resp BP Pulse Ox 10/26/19 13:25 61 110/70 100 10/26/19 13:20 66 112/68 100 10/26/19 13:15 77 111/67 98 10/26/19 13:10 64 115/71 100 10/26/19 13:05 79 120/74 93 10/26/19 13:00 65 123/76 100 10/26/19 12:55 62 113/69 100 10/26/19 12:50 66 109/71 100 10/26/19 12:45 64 114/69 100 10/26/19 12:40 68 117/71 100 10/26/19 12:35 65 116/71 99 10/26/19 12:30 69 112/68 100 10/26/19 12:26 53 L 109/64 98 10/26/19 12:18 52 L 106/68 99 10/26/19 12:14 36.7 C 76 18 116/74 98 Laboratory Results Short CBC 10/26/19 Range/Units 12:10 WBC 9.24 (4.8-10.8) K/uL Hgb 15.3 (14.0-18.0) g/dL Hct 43.8 (42-52) % Plt Count 239 (130-400) K/uL BMP 10/26/19 12:10 Sodium 142 Potassium 4.0 Chloride 109 H Carbon Dioxide 27 BUN 15 Creatinine 1.13 Glucose 149 H Calcium 9.0 Cardiac Enzymes 10/26/19 Range/Units 12:10 Troponin I < 0.015 (0-0.045) ng/ml Liver Function 10/26/19 Range/Units 12:10 Total Bilirubin 0.4 (0.2-1) mg/dl AST 14 L (15-37) U/L ALT 36 (12-78) U/L Alkaline Phosphatase 59 (45-117) U/L Albumin 3.8 (3.4-5.0) gm/dl Diagnostic Findings CXR:Negative Chest ECG Additional Comments: EKG: Sinus bradycardia, QTC 425
[2019-10-26 14:15] LABS: Lyme Ab IgG w/WB Rflx Negative (Negative); Lyme Ab IgM w/WB Rflx Negative (Negative)
--- NOTE | 2019-10-26 15:39 | Electrocardiogram Report ---
Test Reason : Blood Pressure : / mmHG Vent. Rate : 059 BPM Atrial Rate : 059 BPM P-R Int : 144 ms QRS Dur : 098 ms QT Int : 430 ms P-R-T Axes : 042 -05 020 degrees QTc Int : 425 ms Sinus bradycardia Otherwise normal ECG No previous ECGs available Confirmed by Aureliano Garcia ([id number]) on 10/26/2019 3:39:12 PM Referred By: REFERRED SELF Confirmed By:Santana Garcia
[2019-10-26] MEDS ORDERED: ICU PROTOCOL FOR HYPERGLYCEMIA PRN (15:44)
[2019-10-26] MEDS ORDERED: ATROPINE SULFATE 0.1 MG/ML 10ML SYR IV ONE (15:49)
[2019-10-26] MEDS: NSS + 20MEQ KCL 20 MEQ/1,000 ML BAG IV SCH (16:42)
--- NOTE | 2019-10-26 18:03 | CT Scan Report ---
HEAD CT NONCONTRAST CT DOSE: 537.48 mGy.cm HISTORY: syncope TECHNIQUE: Multiaxial CT images of the head were performed without the use of intravenous contrast. A utomated exposure control was utilized for this study. A dose lowering technique was utilized adheri ng to the principles of ALARA. Comparison: None. Findings: Mild mucosal thickening within the left maxillary sinus. The mastoid air cells are clear. T he calvarium and skull base are intact. The ventricles and sulci are within normal limits. There is n o mass, hematoma, midline shift, or acute infarct. Impression: No acute intracranial abnormality. ACT 112: Negative or not required by law. Electronically signed by: Renny Montoya M.D. 10/26/2019 6:02 PM
[2019-10-26] MEDS: ACETAMINOPHEN 325 MG TAB PO PRN (20:20)
[2019-10-26 21:30] LABS: Adenovirus PCR Not Detected (NotDetected); Bordetella parapertussis PCR Not Detected (NotDetected); Bordetella pertussis PCR Not Detected (NotDetected); Chlamydia pneumoniae PCR Not Detected (NotDetected); Coronavirus 229E PCR Not Detected (NotDetected); Coronavirus HKU1 PCR Not Detected (NotDetected); Coronavirus NL63 PCR Not Detected (NotDetected); Coronavirus OC43PCR Not Detected (NotDetected); Human Metapneumovirus PCR Not Detected (NotDetected); Influenza A PCR Not Detected (NotDetected); Influenza B PCR Not Detected (NotDetected); Mycoplasma pneumoniae PCR Not Detected (NotDetected); Parainfluenza Virus 1 PCR Not Detected (NotDetected); Parainfluenza Virus 2 PCR Not Detected (NotDetected); Parainfluenza Virus 3 PCR Not Detected (NotDetected); Parainfluenza Virus 4 PCR Not Detected (NotDetected); Respiratory Syncytial VirusPCR Not Detected (NotDetected)
[2019-10-26 21:51] LABS: Rhinovirus/Enterovirus PCR DETECTED (NotDetected)
[2019-10-26] MEDS: DOXYCYCLINE HYCLATE 100 MG CAP PO SCH (22:03)
[2019-10-26] MEDS: HEPARIN SOD 5,000 UNIT/0.5 ML VIAL SQ SCH (22:04)
[2019-10-26 23:38] LABS: Amphetamines+Metham, Urine Neg (Neg); Barbiturates, Urine Neg (Neg); Benzodiazepine, Urine Neg (Neg); Cocaine, Urine Neg (Neg); MDMA (Ecstacy), Urine Neg (Neg); Methadone, Urine Neg (Neg); Opiate, Urine Neg (Neg); Phencyclidine, Urine Neg (Neg)
[2019-10-27] MEDS: NSS + 20MEQ KCL 20 MEQ/1,000 ML BAG IV SCH ×2 (02:49→17:07)
[2019-10-27 04:46] LABS: Eosinophils # (auto) 0.05 K/uL (0-0.5); Eosinophils % (auto) 0.6 %; Hematocrit (blood only) 35.4 % (42-52); Hemoglobin 12.3 g/dL (14.0-18.0); Immature Granulocytes # (auto) 0.02 K/uL (0.00-0.02); Immature Granulocytes % (auto) 0.2 %; Lymphocytes # (auto) 1.44 K/uL (1.2-3.4); Lymphocytes % (auto) 17.8 %; Mean Corpuscular Hemoglobin 30.9 pg (25-34); Mean Corpuscular Hgb Conc 34.7 g/dL (32-36); Mean Corpuscular Volume 88.9 fL (80-100); Mean Platelet Volume 9.8 fL (7.4-10.4); Monocytes # (auto) 0.79 K/uL (0.11-0.59); Monocytes % (auto) 9.8 %; Neutrophils # (auto) 5.79 K/uL (1.4-6.5); Neutrophils % (auto) 71.6 %; Platelet Count 177 K/uL (130-400); RDW Coefficient of Variation 13.4 % (11.5-14.5); RDW Standard Deviation 43.5 fL (36.4-46.3); Red Blood Count 3.98 M/uL (4.7-6.1); White Blood Count 8.09 K/uL (4.8-10.8)
[2019-10-27 05:15] LABS: BUN Creatinine Ratio 12.9 (10-20); Blood Urea Nitrogen 12 mg/dl (7-18); Calcium 7.7 mg/dl (8.5-10.1); Carbon Dioxide 26 mmol/L (21-32); Chloride 113 mmol/L (98-107); Creatinine Clr Calc Pharmacy 109.7 ml/min; Est GFR (African American) 109.3; Est GFR (Non-African American) 94.3; Glucose 92 mg/dl (70-99); Magnesium 1.8 mg/dl (1.8-2.4); Potassium 3.5 mmol/L (3.5-5.1); Sodium 144 mmol/L (136-145)
[2019-10-27 05:39] LABS: Chol HDL Ratio 5; Cholesterol 137 mg/dl (0-200); HDL Cholesterol 30 mg/dl; LDL Cholesterol Calculated 87 mg/dl; Phosphorus 2.8 mg/dl (2.5-4.9); Triglycerides 100 mg/dl (0-150); Troponin I < 0.015 ng/ml (0-0.045); VLDL Cholesterol 20 mg/dl
[2019-10-27] MEDS: HEPARIN SOD 5,000 UNIT/0.5 ML VIAL SQ SCH ×3 (05:51→21:14)
[2019-10-27 06:00] LABS: Estimated Average Glucose 111 mg/dl; Hemoglobin A1C 5.5 % (4.5-5.6)
--- NOTE | 2019-10-27 08:07 | Ultrasound Report ---
BILATERAL CAROTID DOPPLER STUDY HISTORY: Syncope COMPARISON: None. TECHNIQUE: Real-time, grayscale, and color Doppler sonography of the carotid arteries was performed. Imaging reviewed in the transverse and longitudinal planes. All measurements were calculated based on NASCET criteria. FINDINGS: Antegrade flow is seen in the bilateral vertebral arteries. The brachial pressures were not obtained. The peak systolic velocity within the right ICA is 173 cm/s proximally. The right systolic ratio is 1 .3. The peak systolic velocity within the left ICA is 187 cm/s proximally. The left systolic ratio is 1.4 . IMPRESSION: Elevated peak systolic velocities within the proximal bilateral internal carotid arteries suggestive of 50-69% stenosis. ACT 112: Negative or not required by law. Electronically signed by: Renny Montoya M.D. 10/27/2019 8:06 AM
[2019-10-27] MEDS: DOXYCYCLINE HYCLATE 100 MG CAP PO SCH ×2 (08:50→21:14)
[2019-10-27] MEDS ORDERED: MIDAZOLAM HCL 5 MG/ML 1 ML VIAL ONE (12:44)
[2019-10-27] MEDS ORDERED: fentaNYL citrate 100 MCG/2 ML VIAL ONE ×2 (12:44→15:03)
[2019-10-27] MEDS ORDERED: CEFAZOLIN 250 MG/ML 1 GM VIAL ONE (12:44)
[2019-10-27] MEDS ORDERED: BACITRACIN INJ 50,000 UNIT VIAL ONE (13:08)
[2019-10-27] MEDS ORDERED: LIDOCAINE HCL 1% 20 ML VIAL ONE ×2 (13:08→13:44)
[2019-10-27] MEDS ORDERED: BUPIVACAINE 0.25% 30 ML VIAL ONE (13:08)
--- NOTE | 2019-10-27 13:09 | History & Physical Bridge Note ---
Date of Service October 27, 2019 History & Physical Bridge Note I have examined the patient, reviewed the History & Physical and in the interval since the performance of the History & Physical I have noted the following changes of clinical significance: pt with intermittent sinus arrest; for a pacemaker; potential risks discussed and consents signed
--- NOTE | 2019-10-27 13:09 | Pre Anesthesia Assessment ---
Date of Service October 27, 2019 Pre Sedation Assessment Vital Signs Temp Pulse Resp BP Pulse Ox 10/27/19 11:09 37.1 C 10/27/19 10:30 69 18 108/64 98 10/27/19 09:30 63 18 116/67 96 10/27/19 08:30 65 23 104/68 96 10/27/19 08:00 65 10/27/19 07:30 60 19 107/67 98 10/27/19 06:30 63 18 104/69 96 10/27/19 05:30 62 16 100/60 95 10/27/19 05:00 65 19 96 10/27/19 04:30 61 16 105/64 96 10/27/19 04:00 37.3 C 61 20 98 10/27/19 03:30 65 16 102/65 97 10/27/19 03:00 66 17 96 10/27/19 02:30 70 17 94/55 L 95 10/27/19 02:00 68 21 96 10/27/19 01:30 66 18 102/59 L 95 10/27/19 01:00 68 22 96 10/27/19 00:30 66 17 105/58 L 97 10/27/19 00:00 37.3 C 63 16 96 10/26/19 23:30 74 21 103/63 97 10/26/19 23:00 76 17 98 10/26/19 22:30 73 15 104/64 97 10/26/19 22:00 75 21 109/54 L 98 10/26/19 21:00 75 22 107/57 L 97 10/26/19 20:00 38 C H 85 21 109/63 97 10/26/19 19:00 85 23 97 10/26/19 18:10 88 19 98 10/26/19 18:00 86 22 98 10/26/19 17:56 87 17 99 10/26/19 17:40 91 H 21 96 10/26/19 17:31 93 H 27 H 96 10/26/19 17:30 87 24 115/73 96 10/26/19 17:20 85 21 95 10/26/19 17:10 85 23 95 10/26/19 17:00 87 19 95 10/26/19 16:50 85 15 94 10/26/19 16:40 92 H 28 H 96 10/26/19 16:31 81 18 96 10/26/19 16:30 83 19 113/77 97 10/26/19 16:20 72 23 94 10/26/19 16:10 80 25 H 96 10/26/19 16:00 78 15 94 10/26/19 15:52 79 16 129/75 92 10/26/19 15:50 72 20 92 10/26/19 15:44 81 10/26/19 15:40 71 18 10/26/19 15:31 73 22 10/26/19 15:30 74 21 132/70 10/26/19 15:29 79 19 10/26/19 15:15 64 105/66 98 10/26/19 15:11 67 96 10/26/19 15:10 65 109/70 98 10/26/19 15:05 73 115/72 100 10/26/19 15:01 69 99 10/26/19 15:00 37.4 C 74 105/65 100 10/26/19 14:55 71 111/67 100 10/26/19 14:50 92 H 127/65 99 10/26/19 14:45 81 124/75 100 10/26/19 14:40 77 113/71 10/26/19 14:35 72 118/71 98 10/26/19 14:30 66 116/73 99 10/26/19 14:25 65 115/76 99 10/26/19 14:20 65 106/65 100 10/26/19 14:15 67 119/66 100 10/26/19 14:10 72 125/73 100 10/26/19 14:05 74 123/76 100 10/26/19 14:00 63 122/70 100 10/26/19 13:55 60 113/68 100 10/26/19 13:50 60 109/68 100 10/26/19 13:45 61 109/66 100 10/26/19 13:40 57 L 107/66 100 10/26/19 13:35 60 111/65 100 10/26/19 13:30 66 110/69 98 1420 13:25 61 110/70 100 14 13:20 66 112/68 100 14 13:15 77 111/67 98 10/26/19 13:10 64 115/71 100 Cardiovascular + regular rhythm Respiratory normal respiratory effort, lungs clear to auscultation Pre-Sedation Airway Assessment Smoking Status: Former smoker Hx Sleep Apnea: No Hx Difficult Intubation: No Short, Thick Neck: No Oral Cavity: + WNL ASA: ASA3 NPO Status Date of Last Intake of Fluids: 10/26/19 Date of Last Intake of Solid Food: 10/26/19 Procedure Planning Contraindications for Sedation: none Current Medications Reviewed: Yes Notes The planned sedation has been discussed with the patient. Informed Consent was obtained. I have identified the patient, determined the appropriateness of sedation and have assessed the patient immediately prior to the procedure. All medicine(s) and interventions are by my order.
--- NOTE | 2019-10-27 14:33 | Electroencephalogram ---
EEG Procedure Note Date of Service October 27, 2019 Start / End Times Start Time: 06:31 End Time: 06:[address] Zehra MD History A 49-year-old male with recurrent syncope. EEG performed for evaluation of epileptiform activity. Home Medication List Home Medications Medication Instructions Recorded Confirmed Type acetaminophen [Tylenol] 650 mg PO QAM 10/26/19 10/26/19 History lisinopril 40 mg PO QAM 10/26/19 10/26/19 History meloxicam 15 mg PO QAM 10/26/19 10/26/19 History Inpatient Medication List Acetaminophen (Tylenol) 650 mg PO Q4H PRN PRN Reason: Pain or Fever Stop: 11/25/19 19:47 Last Admin: 10/26/19 20:20 Dose: 650 mg Documented by: [id number] Doxycycline Hyclate (Vibramycin) 100 mg PO BID [facility]; Protocol Stop: 11/02/19 20:59 Last Admin: 10/27/19 08:50 Dose: 100 mg Documented by: [id number] Admin: 10/26/19 22:03 Dose: 100 mg Documented by: [id number] Heparin Sodium (Porcine) (Heparin Sodium (Porcine)) 5,000 units SQ Q8 [facility] Stop: 11/25/19 21:59 Last Admin: 10/27/19 05:51 Dose: Not Given Documented by: [id number] Admin: 10/26/19 22:04 Dose: 5,000 units Documented by: [id number] Cosigned by: [id number] Potassium Chloride/Sodium Chloride (Normal Saline W/20 Meq Kcl) 20 meq in 1,000 mls @ 100 mls/hr IV .Q10H [facility] Stop: 11/25/19 16:59 Last Admin: 10/27/19 02:49 Dose: 100 mls/hr Documented by: [id number] Infusion: 10/27/19 02:42 Dose: 100 mls/hr Documented by: [id number] Admin: 10/26/19 16:42 Dose: 100 mls/hr Documented by: [id number] Discontinued Medications Epinephrine HCl (Epinephrine) Confirm Administered Dose 1 mg IV .STK-MED ONE Stop: 10/26/19 12:27 Last Admin: 10/26/19 15:26 Dose: Not Given Documented by: [id number] Amiodarone HCl/Dextrose (Nexterone / D5w) 360 mg in 200 mls @ 33.3 mls/hr IV .Q6H1M NNAMDI Stop: 11/25/19 12:14 Last Admin: 10/26/19 13:32 Dose: Not Given Documented by: [id number] Sodium Chloride (Nss 1000ml) 1,000 mls @ 999 mls/hr IV .Q1H1M NNAMDI Stop: 10/26/19 13:15 Last Infusion: 10/26/19 13:26 Dose: 0 mls/hr Documented by: [id number] Admin: 10/26/19 12:26 Dose: 999 mls/hr Documented by: [id number] Potassium Phosphate 21 mmol/ (Sodium Chloride) 507 mls @ 88 mls/hr IV 1315 ONE Stop: 10/26/19 19:00 Last Infusion: 10/26/19 19:45 Dose: 0 mls/hr Documented by: [id number] Admin: 10/26/19 13:18 Dose: 88 mls/hr Documented by: [id number] Magnesium Sulfate/Dextrose (Magnesium Sulfate / D5w) Confirm Administered Dose 1 gm IV .[employer] ONE Stop: 10/26/19 12:27 Last Admin: 10/26/19 15:26 Dose: Not Given Documented by: [id number] Sodium Phosphate (Sodium Phosphate Replacement) 21 mmol IV NOW STA Stop: 10/26/19 12:50 Last Admin: 10/26/19 15:40 Dose: 21 mmol Documented by: [id number] Description This is a 21 electrode EEG with a single channel dedicated to limited EKG. The electrodes were placed in accordance with the International 10-20 system. REPORT: At the onset of the EEG the patient is awake. The background is symmetric. The posterior dominant rhythm is 10-11 Hz. There is a normal anterior to posterior gradient with low amplitude beta activity in the frontal head regions. Photic stimulation and hyperventilation do not induce any abnormalities. Drowsiness is characterized by increased theta activity, reduced blink rate, and decreased myogenic artifact. IMPRESSION: This is a normal awake and drowsy routine EEG. No epileptiform activity is recorded.
--- NOTE | 2019-10-27 15:37 | Operative Report ---
Post Operative Report Pre & Post Diagnosis sinus arrest Operation Date: 10/27/19 13:00 <No data on this case meets the specified criteria> I identified the patient and participated in the time-out.: Yes Procedure Operation Date: 10/27/19 13:00 <No data on this case meets the specified criteria> Surgeon Maria Fernanda Gutierrez, DO Delivery Driver Assistant none Estimated Blood Loss 30 Findings Consistent with Post-Op Diagnosis Specimens none Description of Procedure see official report I attest to the content of the Intraoperative Record and any orders documented therein. Any exceptions are noted below.
--- NOTE | 2019-10-27 15:37 | Post Anesthesia Assessment ---
Date of Service October 27, 2019 Post Sedation Assessment Vital Signs Temp Pulse Resp BP Pulse Ox 10/27/19 11:09 37.1 C 10/27/19 10:30 69 18 108/64 98 10/27/19 09:30 63 18 116/67 96 10/27/19 08:30 65 23 104/68 96 10/27/19 08:00 65 10/27/19 07:30 60 19 107/67 98 10/27/19 06:30 63 18 104/69 96 10/27/19 05:30 62 16 100/60 95 10/27/19 05:00 65 19 96 10/27/19 04:30 61 16 105/64 96 10/27/19 04:00 37.3 C 61 20 98 10/27/19 03:30 65 16 102/65 97 10/27/19 03:00 66 17 96 10/27/19 02:30 70 17 94/55 L 95 10/27/19 02:00 68 21 96 10/27/19 01:30 66 18 102/59 L 95 10/27/19 01:00 68 22 96 10/27/19 00:30 66 17 105/58 L 97 10/27/19 00:00 37.3 C 63 16 96 10/26/19 23:30 74 21 103/63 97 10/26/19 23:00 76 17 98 10/26/19 22:30 73 15 104/64 97 10/26/19 22:00 75 21 109/54 L 98 10/26/19 21:00 75 22 107/57 L 97 10/26/19 20:00 38 C H 85 21 109/63 97 10/26/19 19:00 85 23 97 10/26/19 18:10 88 19 98 10/26/19 18:00 86 22 98 10/26/19 17:56 87 17 99 10/26/19 17:40 91 H 21 96 10/26/19 17:31 93 H 27 H 96 10/26/19 17:30 87 24 115/73 96 10/26/19 17:20 85 21 95 10/26/19 17:10 85 23 95 10/26/19 17:00 87 19 95 10/26/19 16:50 85 15 94 10/26/19 16:40 92 H 28 H 96 10/26/19 16:31 81 18 96 10/26/19 16:30 83 19 113/77 97 10/26/19 16:20 72 23 94 10/26/19 16:10 80 25 H 96 10/26/19 16:00 78 15 94 10/26/19 15:52 79 16 129/75 92 10/26/19 15:50 72 20 92 10/26/19 15:44 81 10/26/19 15:40 71 18 Recovery Score Activity: Moves 4 extremities Respiration: Deep Breath/Cough Circulation: +/-20% PreAnes Value Consciousness: Fully Awake Oxygen Saturation: > 92% On Room Air Discharge Sedation Level of Care: Fast Track Phase II Post Sedation Plan On clinical assessment, the patient appears to have tolerated the sedation without complications. Patient is recovering as anticipated. Patient will continue to be monitored by nursing and may be discharged when sedation discharge criteria are met per below protocol. Upon Completions of procedure up to 15 minutes continue every 5 minute vital signs and the P.A.R. score; then discharge to a Phase I or Fast Track to Phase II per the following guidelines: * Discharge Patient to appropriate Phase II area if PAR is 8 or greater or return to pre- procedure baseline. The post - procedure orders will be as directed. * If PAR score is less than 8 or not return to pre-procedure baseline then patient will follow Phase I monitoring till PAR is reached for Phase II. The Phase I may be done in procedure room or may call to secure a Phase I area. * If naloxone or flumazenil are used for reversal, hold in Phase I for continued monitoring from when last reversal dose was given for a minimum of 60 minutes or longer pending the nurse and/or physician discretion of patient condition before discharge to Phase II. Please call the Sedation Physician to re-evaluate and complete post-note for discharge to Phase II area. Do NOT discharge from procedure sedation or Phase 1 until post- sedation evaluation note is complete by procedure /sedation MD Sedation Discharge Instructions to be given to the patient at discharge to home.
--- NOTE | 2019-10-27 17:22 | Cardiology Progress Note ---
Date of Service October 27, 2019 Assessment & Plan (1) Sinus pause: (2) Syncope: Patient presents with several episodes of syncope and near syncope at home. EKG is normal though telemetry demonstrated transient sinus pause with marked bradycardia. No cardiac symptoms though awoke diaphoretic this morning. Has had approximately 6 several days history of preceding cold-like symptoms of malaise, low-grade temperature No severe pain or overt inciting cause. EKGs and enzymes not reflective of acute ischemia. Patient normotensive since presentation Plan patient underwent pacemaker insertion today with good tolerance. Increase activities with anticipated discharge and outpatient follow-up tomorrow Subjective Patient seen and examined both pre-and post pacemaker insertion. No further profound bradycardia arrhythmias. Overall feels well. Tolerated pacemaker insertion well. Physical Exam Constitutional: WD/WN, vitals as above no acute distress Eyes: PERRL, conjunctivae normal, anicteric sclerae ENMT: external ear and nose normal, oropharynx normal Neck: trachea midline, no thyromegaly Respiratory: normal respiratory effort, lungs clear to auscultation Cardiovascular: Rate/Rhythm: regular rate and regular rhythm Heart Sounds: normal S1 and normal S2; no gallop and no murmur Palpation: normal PMI Vessels: normal carotid upstroke and radial pulses present; no JVD and no carotid bruit Extremities: no edema Chest (Breasts): Chest: + pacemaker (Site bandaged without bleeding or hematoma) Gastrointestinal (Abdomen): normal bowel sounds, soft, nontender, no hepatosplenomegaly Musculoskeletal: no cyanosis or clubbing, extremities motor strength 5/5 Skin: no rashes, warm and dry Neurologic: PERRL, EOMI, accommodation nl, no face palsy, no dysarthria Psychiatric: A+Ox3, euthymic affect Results & Data Vital Signs (Past 12 Hours) Vital Signs Temp Pulse Pulse Resp BP BP Pulse Ox 10/27/19 15:59 78 18 135/87 93 10/27/19 15:45 80 18 134/82 93 10/27/19 11:09 37.1 C 10/27/19 10:30 69 18 108/64 98 10/27/19 09:30 63 18 116/67 96 10/27/19 08:30 65 23 104/68 96 10/27/19 08:00 65 10/27/19 07:30 60 19 107/67 98 10/27/19 06:30 63 18 104/69 96 10/27/19 05:30 62 16 100/60 95 Laboratory Results Laboratory Results - last 24 hr 10/26/19 10/26/19 10/26/19 15:44 19:00 20:20 WBC RBC Hgb Hct MCV MCH MCHC RDW Std Deviation RDW Coeff of Pastora Plt Count MPV Immature Gran % (Auto) Neut % (Auto) Lymph % (Auto) [place] % (Auto) Eos % (Auto) Baso % (Auto) Neut # (Auto) Lymph # (Auto) [place] # (Auto) Eos # (Auto) Baso # (Auto) Immature Gran # (Auto) Sodium Potassium Chloride Carbon Dioxide Anion Gap BUN Creatinine Est Cr Clr Drug Dosing Est GFR ( Amer) Est GFR (Non-Af Amer) BUN/Creatinine Ratio Glucose POC Glucose Estimat Average Glucose Hemoglobin A1c Calcium Phosphorus Magnesium Troponin I < 0.015 Triglycerides Cholesterol LDL Cholesterol, Calc VLDL Cholesterol, Calc HDL Cholesterol Cholesterol/HDL Ratio Nasal Screen MRSA (PCR) Positive A Urine Opiates Screen Ur Methadone, Qual Urine Barbiturates Ur Phencyclidine (PCP) U Amphetamin/Meth Scrn MDMA (Ecstasy) Screen U Benzodiazepines Scrn Ur Cocaine Metabolite U Marijuana (THC) Screen Adenovirus (PCR) Not Detected B. pertussis DNA (PCR) Not Detected B.parapertussis DNA PCR Not Detected C. pneumoniae DNA (PCR) Not Detected Coronavirus OC43 (PCR) Not Detected Coronavirus HKU1 (PCR) Not Detected Coronavirus 229E (PCR) Not Detected Coronavirus NL63 (PCR) Not Detected Human Metapneumovir PCR Not Detected Influenza Type A (PCR) Not Detected Influenza Type B (PCR) Not Detected M. pneumoniae (PCR) Not Detected Parainfluenza 1 (PCR) Not Detected Parainfluenza 2 (PCR) Not Detected Parainfluenza 3 (PCR) Not Detected Parainfluenza 4 (PCR) Not Detected RSV (PCR) Not Detected Entero/Rhino (PCR) DETECTED A* 10/26/19 10/26/19 10/27/19 21:15 23:00 04:31 WBC RBC Hgb Hct MCV MCH MCHC RDW Std Deviation RDW Coeff of Pastora Plt Count MPV Immature Gran % (Auto) Neut % (Auto) Lymph % (Auto) [place] % (Auto) Eos % (Auto) Baso % (Auto) Neut # (Auto) Lymph # (Auto) [place] # (Auto) Eos # (Auto) Baso # (Auto) Immature Gran # (Auto) Sodium 144 Potassium 3.5 Chloride 113 H Carbon Dioxide 26 Anion Gap 5.0 BUN 12 Creatinine 0.95 Est Cr Clr Drug Dosing 109.7 Est GFR ( Amer) 109.3 Est GFR (Non-Af Amer) 94.3 BUN/Creatinine Ratio 12.9 Glucose 92 POC Glucose 119 H Estimat Average Glucose Hemoglobin A1c Calcium 7.7 L Phosphorus 2.8 D Magnesium 1.8 Troponin I < 0.015 Triglycerides 100 Cholesterol 137 LDL Cholesterol, Calc 87 VLDL Cholesterol, Calc 20 HDL Cholesterol 30 Cholesterol/HDL Ratio 5 Nasal Screen MRSA (PCR) Urine Opiates Screen Neg Ur Methadone, Qual Neg Urine Barbiturates Neg Ur Phencyclidine (PCP) Neg U Amphetamin/Meth Scrn Neg MDMA (Ecstasy) Screen Neg U Benzodiazepines Scrn Neg Ur Cocaine Metabolite Neg U Marijuana (THC) Screen Neg Adenovirus (PCR) B. pertussis DNA (PCR) B.parapertussis DNA PCR C. pneumoniae DNA (PCR) Coronavirus OC43 (PCR) Coronavirus HKU1 (PCR) Coronavirus 229E (PCR) Coronavirus NL63 (PCR) Human Metapneumovir PCR Influenza Type A (PCR) Influenza Type B (PCR) M. pneumoniae (PCR) Parainfluenza 1 (PCR) Parainfluenza 2 (PCR) Parainfluenza 3 (PCR) Parainfluenza 4 (PCR) RSV (PCR) Entero/Rhino (PCR) 10/27/19 10/27/19 04:31 04:31 WBC 8.09 RBC 3.98 L Hgb 12.3 L D Hct 35.4 L MCV 88.9 MCH 30.9 MCHC 34.7 RDW Std Deviation 43.5 RDW Coeff of Pastora 13.4 Plt Count 177 MPV 9.8 Immature Gran % (Auto) 0.2 Neut % (Auto) 71.6 Lymph % (Auto) 17.8 [place] % (Auto) 9.8 Eos % (Auto) 0.6 Baso % (Auto) 0.0 Neut # (Auto) 5.79 Lymph # (Auto) 1.44 [place] # (Auto) 0.79 H Eos # (Auto) 0.05 Baso # (Auto) 0.00 Immature Gran # (Auto) 0.02 Sodium Potassium Chloride Carbon Dioxide Anion Gap BUN Creatinine Est Cr Clr Drug Dosing Est GFR ( Amer) Est GFR (Non-Af Amer) BUN/Creatinine Ratio Glucose POC Glucose Estimat Average Glucose 111 Hemoglobin A1c 5.5 Calcium Phosphorus Magnesium Troponin I Triglycerides Cholesterol LDL Cholesterol, Calc VLDL Cholesterol, Calc HDL Cholesterol Cholesterol/HDL Ratio Nasal Screen MRSA (PCR) Urine Opiates Screen Ur Methadone, Qual Urine Barbiturates Ur Phencyclidine (PCP) U Amphetamin/Meth Scrn MDMA (Ecstasy) Screen U Benzodiazepines Scrn Ur Cocaine Metabolite U Marijuana (THC) Screen Adenovirus (PCR) B. pertussis DNA (PCR) B.parapertussis DNA PCR C. pneumoniae DNA (PCR) Coronavirus OC43 (PCR) Coronavirus HKU1 (PCR) Coronavirus 229E (PCR) Coronavirus NL63 (PCR) Human Metapneumovir PCR Influenza Type A (PCR) Influenza Type B (PCR) M. pneumoniae (PCR) Parainfluenza 1 (PCR) Parainfluenza 2 (PCR) Parainfluenza 3 (PCR) Parainfluenza 4 (PCR) RSV (PCR) Entero/Rhino (PCR) (1) Syncope Syncope type: unspecified Qualified Code(s): R55 - Syncope and collapse
--- NOTE | 2019-10-27 19:19 | Electrocardiogram Report ---
Test Reason : Blood Pressure : / mmHG Vent. Rate : 056 BPM Atrial Rate : 056 BPM P-R Int : 138 ms QRS Dur : 096 ms QT Int : 410 ms P-R-T Axes : 031 -04 015 degrees QTc Int : 395 ms Sinus bradycardia Otherwise normal ECG When compared with ECG of 26-OCT-2019 12:24, No significant change was found Confirmed by Aureliano Garcia ([id number]) on 10/27/2019 7:19:00 PM Referred By: REFERRED SELF Confirmed By:Santana Garcia
--- NOTE | 2019-10-27 19:46 | Hospitalist Progress Note ---
Date of Service October 27, 2019 Assessment & Plan (1) Sick sinus syndrome: Recurrent Syncope Symptomatic Bradycardia CT head no acute intracranial abnormality Carotid doppler showed elevated peak systolic velocities within the proximal bilateral internal carotid arteries suggestive of 50-69% stenosis. ECHO showed LV wall motion is normal. EF 56 to 70% Cardio on board S/P pacemaker placement done today Continue to avoid AV lior blocking agents Clinically stable Hypophosphatemia Replace phosphate Monitor Flulike symptoms COVID-19 screen negative Rhino PCR detected Pt is asymptomatic Continue droplet precaution Hypertension Stable Will resume lisinopril in am DVT Px: Heparin SQ Code Status Full Code Disposition Monitor in Telemetry Admission and Anticipated Discharge Date Admission Date: October 26, 2019 Subjective Pt was seen and examined Lying in bed with no distress with as bedside Pt said that he feels OK He said that he feels a little tender around pacemaker incision Denies any URI, no chest pain, palpitation and fever Physical Exam Physical Exam: General- No acute distress Head- atraumatic Eyes- PERRL, EOMI, ENT- oropharynx clear Neck- supple, no JVD Lungs- clear to auscultation Heart- regular rhythm; no murmur Abdomen- normal bowel sounds, soft, nontender Extremities- no calf tenderness Neuro- alert, oriented x 3; PERRL, EOMI; no facial palsy; no dysarthria Skin- warm & dry Results & Data Results & Data ([facility]) Vital Signs (Past 12 Hours) Vital Signs Temp Pulse Pulse Resp BP BP Pulse Ox 10/27/19 18:02 79 23 133/75 95 10/27/19 17:53 37 C 10/27/19 17:47 96 H 19 143/86 H 93 10/27/19 17:31 88 23 140/89 93 10/27/19 17:16 85 18 125/83 94 10/27/19 17:01 90 16 127/78 92 10/27/19 16:46 78 14 131/84 93 10/27/19 16:31 84 16 139/86 93 10/27/19 16:17 76 22 116/81 94 10/27/19 15:59 78 18 135/87 93 10/27/19 15:45 80 18 134/82 93 10/27/19 12:30 67 18 116/71 97 10/27/19 11:30 74 24 120/74 98 10/27/19 11:09 37.1 C 10/27/19 10:30 69 18 108/64 98 10/27/19 09:30 63 18 116/67 96 10/27/19 08:30 65 23 104/68 96 10/27/19 08:00 65
[2019-10-27] MEDS: ACETAMINOPHEN 325 MG TAB PO PRN (21:14)
[2019-10-28] MEDS: NSS + 20MEQ KCL 20 MEQ/1,000 ML BAG IV SCH ×2 (03:25→10:15)
[2019-10-28] MEDS: HEPARIN SOD 5,000 UNIT/0.5 ML VIAL SQ SCH ×2 (06:09→12:03)
[2019-10-28] MEDS: DOXYCYCLINE HYCLATE 100 MG CAP PO SCH (08:01)
[2019-10-28] MEDS: ACETAMINOPHEN 325 MG TAB PO PRN (08:03)
--- NOTE | 2019-10-28 08:06 | XRay Report ---
XR chest 2V PA/lateral CLINICAL HISTORY: post ppm with RV lead over Left bundle region COMPARISON STUDY: Chest radiograph October 26, 2019. FINDINGS: There is no pneumothorax following placement of a dual lead left subclavian pacemaker. Lead tips project over the right atrial appendage and the right ventricle. Cardiomegaly is noted. There i s no evidence for pulmonary edema. There is no consolidation. IMPRESSION: No pneumothorax following placement of a dual-lead left subclavian pacemaker. ACT 112: Negative or not required by law. Electronically signed by: Montana Greenwood M.D. 10/28/2019 8:05 AM
[2019-10-28 09:03] LABS: Hematocrit (blood only) 36.6 % (42-52); Hemoglobin 12.4 g/dL (14.0-18.0); Mean Corpuscular Hgb Conc 33.9 g/dL (32-36); Mean Corpuscular Volume 88.6 fL (80-100); Mean Platelet Volume 10.1 fL (7.4-10.4); Platelet Count 170 K/uL (130-400); RDW Coefficient of Variation 13.3 % (11.5-14.5); RDW Standard Deviation 42.8 fL (36.4-46.3); Red Blood Count 4.13 M/uL (4.7-6.1); White Blood Count 6.77 K/uL (4.8-10.8)
[2019-10-28] MEDS ORDERED: lisinopriL 40 MG TAB PO SCH (09:30)
[2019-10-28 09:44] LABS: BUN Creatinine Ratio 11.6 (10-20); Creatinine Clr Calc Pharmacy 112.3 ml/min; Est GFR (African American) 109.3; Est GFR (Non-African American) 94.3
--- NOTE | 2019-10-28 12:39 | Hospitalist Progress Note ---
Date of Service October 28, 2019 Assessment & Plan (1) Sick sinus syndrome: Recurrent Syncope Symptomatic Bradycardia CT head no acute intracranial abnormality Carotid doppler showed elevated peak systolic velocities within the proximal bilateral internal carotid arteries suggestive of 50-69% stenosis. ECHO showed LV wall motion is normal. EF 56 to 70% Cardio on board S/P day 1 pacemaker placement done by Dr. Gutierrez CXR today showed no pneumothorax following placement of a dual-lead left subclavian pacemaker. Continue to avoid AV lior blocking agents Case discussed with cardiology and ok from cardiology standpoint to discharge home today Follow up for device and wound check in [facility] on Friday11/02/2019 at 3:30pm Clinically stable Carotid Stenosis Carotid doppler showed elevated peak systolic velocities within the proximal bilateral internal carotid arteries suggestive of 50-69% stenosis. Result of the carotid doppler discussed with patient Recommended outpatient monitor with his provider in [place] Consider to add aspirin 81mg daily once pacemaker wound/incision resolves Hypophosphatemia Replace phosphate Monitor Flulike symptoms COVID-19 screen negative Rhino PCR detected Pt is asymptomatic Continue droplet precaution Hypertension Stable Will resume lisinopril in am DVT Px: Heparin SQ Code Status Full Code Disposition Discharge home today Follow up with your PCP in [place] Follow up with cardiology next week Admission and Anticipated Discharge Date Admission Date: October 26, 2019 Subjective Pt was seen and examined Lying in bed with no distress Pt said that he feels, except tenderness around the incision area Denies any chest pain, palpitation, dizziness and SOB Physical Exam Physical Exam: General- No acute distress Head- atraumatic Eyes- PERRL, EOMI, ENT- oropharynx clear Neck- supple, no JVD Lungs- clear to auscultation Heart- regular rhythm; no murmur Abdomen- normal bowel sounds, soft, nontender Extremities- no calf tenderness Neuro- alert, oriented x 3; PERRL, EOMI; no facial palsy; no dysarthria Skin- warm & dry Results & Data Results & Data ([facility]) Vital Signs (Past 12 Hours) Vital Signs Temp Pulse Pulse Resp BP BP Pulse Ox 10/28/19 11:41 36.5 C 63 18 128/82 94 10/28/19 10:29 37.0 C 66 18 144/65 H 96 10/28/19 08:07 37.0 C 66 18 144/65 H 96 10/28/19 04:09 36.7 C 65 16 136/86 91 10/28/19 00:42 36.5 C 75 17 120/78 95
--- NOTE | 2019-10-28 12:54 | Cardiology Progress Note ---
Date of Service October 28, 2019 Assessment & Plan (1) Sinus pause: (2) Syncope: Patient presents with several episodes of syncope and near syncope at home. EKG is normal though telemetry demonstrated transient sinus pause with marked bradycardia. No cardiac symptoms though awoke diaphoretic this morning. Has had approximately 6 several days history of preceding cold-like symptoms of malaise, low-grade temperature No severe pain or overt inciting cause. EKGs and enzymes not reflective of acute ischemia. Patient normotensive since presentation Plan: Status post pacemaker dual-chamber device with His bundle lead Would resume prehospital medications follow-up with cardiology clinic next week for device check/wound check as scheduled on Friday Subjective No complaints overnight, no arrhythmias. No chest pain or discomfort. Pacer insertion site healing well Physical Exam Constitutional: WD/WN, vitals as above no acute distress Eyes: PERRL, conjunctivae normal, anicteric sclerae ENMT: external ear and nose normal, oropharynx normal Neck: trachea midline, no thyromegaly Respiratory: normal respiratory effort, lungs clear to auscultation Cardiovascular: Rate/Rhythm: regular rate and regular rhythm Heart Sounds: normal S1 and normal S2; no gallop and no murmur Palpation: normal PMI Vessels: normal carotid upstroke and radial pulses present; no JVD and no carotid bruit Extremities: no edema Chest (Breasts): Chest: + pacemaker (Site bandaged without bleeding or hematoma) Gastrointestinal (Abdomen): normal bowel sounds, soft, nontender, no hepatosplenomegaly Musculoskeletal: no cyanosis or clubbing, extremities motor strength 5/5 Skin: no rashes, warm and dry Neurologic: PERRL, EOMI, accommodation nl, no face palsy, no dysarthria Psychiatric: A+Ox3, euthymic affect Results & Data Vital Signs (Past 12 Hours) Vital Signs Temp Pulse Pulse Resp BP BP Pulse Ox 10/28/19 11:41 36.5 C 63 18 128/82 94 10/28/19 10:29 37.0 C 66 18 144/65 H 96 10/28/19 08:07 37.0 C 66 18 144/65 H 96 10/28/19 04:09 36.7 C 65 16 136/86 91 Laboratory Results Laboratory Results - last 24 hr 10/28/19 10/28/19 08:32 08:32 WBC 6.77 RBC 4.13 L Hgb 12.4 L Hct 36.6 L MCV 88.6 MCH 30.0 MCHC 33.9 RDW Std Deviation 42.8 RDW Coeff of Pastora 13.3 Plt Count 170 MPV 10.1 Sodium 142 Potassium 4.0 Chloride 111 H Carbon Dioxide 27 Anion Gap 4.0 BUN 11 Creatinine 0.95 Est Cr Clr Drug Dosing 112.3 Est GFR ( Amer) 109.3 Est GFR (Non-Af Amer) 94.3 BUN/Creatinine Ratio 11.6 Glucose 105 H Calcium 8.0 L (1) Syncope Syncope type: unspecified Qualified Code(s): R55 - Syncope and collapse
[2019-10-28] MEDS ORDERED: ATROPINE SULFATE 0.1 MG/ML 10ML SYR IV ONE (13:43)
--- NOTE | 2019-10-28 19:01 | Electrocardiogram Report ---
Test Reason : Blood Pressure : / mmHG Vent. Rate : 065 BPM Atrial Rate : 065 BPM P-R Int : 144 ms QRS Dur : 096 ms QT Int : 374 ms P-R-T Axes : 037 -11 014 degrees QTc Int : 388 ms Normal sinus rhythm Normal ECG When compared with ECG of 27-OCT-2019 16:21, No significant change was found Confirmed by Aureliano Garcia ([id number]) on 10/28/2019 7:01:23 PM Referred By: REFERRED SELF Confirmed By:Santana Garcia
--- NOTE | 2019-10-30 09:53 | Discharge Summary ---
Date of Service October 28, 2019 Admission HPI Per Admitting Provider Patient is a 49-year-old male with history of hypertension, chronic lower back pain and no other significant medical history presents with history of recurrent syncopal episodes. Patient states having flulike symptoms--dry cough, low-grade fever, malaise for the past 1 week. He traveled from [place] to visit family. Patient had a syncopal episode yesterday after using bathroom. He noticed to have developed nausea prior to syncopal. The syncopal event yesterday, was and noticed. Patient had significant diaphoresis this morning. This morning patient tried to wash himself and had another syncopal episode which lasted for about 5 minutes as per family. Had recurrence of nausea prior to syncopal episode. No confusion post syncopal episode noted. 20 minutes after the syncopal episode this morning, he had another syncopal episode which lasted for about 2 to 3 seconds. Patient was found to be apneic, pulseless and also was noted to have transient V. fib as per EMS/ER physician and had CPR which resulte d in spontaneous recovery. He was given amiodarone bolus while in ED. He was noted to have 2 episodes of pauses while in ED which spontaneously recovered. Denies any history of chest pain, SOB, palpitations, dizziness, hemoptysis, headache, change in vision, Incontinence, slurred speech, facial deformity, vomiting, abdominal pain, diarrhea, change in appetite, dysuria, hematuria, sick contact, recent change in medications. Admission Exam Per Admitting Provider Vitals signs as noted above General Appearance:Moderately built and nourished, no apparent distress Head: normocephalic, Atraumatic Eyes: normal inspection, EOMI Neck: supple, Trachea midline Respiratory/Chest: Normal breath sounds, CTA, No accessory muscle use Cardiovascular: S1, S2, No murmur Abdomen/GI:Soft, Non tender, Bowel sounds present Extremities/Musculoskelatal:normal inspection, no edema Neurologic/Psych:AAOX3, grossly no focal neurological deficits Skin: normal color, warm Principal Diagnosis Sinus Pause Recurrent Syncope Symptomatic Bradycardia Hypophosphatemia Flulike symptoms Hypertension Discharge Exam General- No acute distress Head- atraumatic Eyes- PERRL, EOMI, ENT- oropharynx clear Neck- supple, no JVD Lungs- clear to auscultation Heart- regular rhythm; no murmur Abdomen- normal bowel sounds, soft, nontender Extremities- no calf tenderness Neuro- alert, oriented x 3; PERRL, EOMI; no facial palsy; no dysarthria Skin- warm & dry Discharge Data Allergies Allergy/AdvReac Type Severity Reaction Status Date / Time No Known Allergies Allergy Unverified 10/26/19 13:28 Consultations 10/26/19 13:15 ED Decision to Admit Stat 10/26/19 15:44 Consult Cardiology Routine Consult Case Management - Discharge Planning Routine Procedures Performed Operation Date: 10/27/19 13:00 Actual Procedures p Pacer with A/V Leads (Dual) - DO nurys Maldonado Venogram, Unilateral - DO nurys Maldonado Bundle of his Recording - Maria Fernanda Gutierrez DO Ordered Studies 10/26/19 15:44 CT head/brain wo con Routine US carotid doppler BI Routine 10/27/19 13:45 EP Lab Images for PACS ONCE XR chest 1V portable CLINICAL HISTORY: Chest Pain dyspnea COMPARISON STUDY: No previous studies for comparison. FINDINGS: The bones soft tissues and hemidiaphragms are normal. The cardiomediastinal silhouette is normal. The lungs are clear. The pulmonary vasculature is normal. IMPRESSION: Negative chest. ACT 112: Negative or not required by law. The above report was generated using voice recognition software. It may contain grammatical, syntax or spelling errors. Electronically signed by: Ever Holden M.D. 10/26/2019 1:05 PM Dictated: 10/26/19 1304 Transcribed: 10/26/19 1304 BILATERAL CAROTID DOPPLER STUDY HISTORY: Syncope COMPARISON: None. TECHNIQUE: Real-time, grayscale, and color Doppler sonography of the carotid arteries was performed. Imaging reviewed in the transverse and longitudinal radha maya. All measurements were calculated based on NASCET criteria. FINDINGS: Antegrade flow is seen in the bilateral vertebral arteries. The brachial pressures were not obtained. The peak systolic velocity within the right ICA is 173 cm/s proximally. The right systolic ratio is 1.3. The peak systolic velocity within the left ICA is 187 cm/s proximally. The left systolic ratio is 1.4. IMPRESSION: Elevated peak systolic velocities within the proximal bilateral internal carotid arteries suggestive of 50-69% stenosis. ACT 112: Negative or not required by law. Electronically signed by: Renny Montoya M.D. 10/27/2019 8:06 AM Dictated: 10/27/19803 Transcribed: 10/27/[address] HEAD [address] NONCONTRAST CT DOSE: 537.48 mGy.cm HISTORY: syncope TECHNIQUE: Multiaxial CT images of the head were performed without the use of intravenous contrast. Automated exposure control was utilized for this study. A dose lowering technique was utilized adhering to the principles of ALARA. Comparison: None. Findings: Mild mucosal thickening within the left maxillary sinus. The mastoid air cells are clear. The calvarium and skull base are intact. The ventricles and sulci are within normal limits. There is no mass, hematoma, midline shift, or acute infarct. Impression: No acute intracranial abnormality. ACT 112: Negative or not required by law. Electronically signed by: Renny Montoya M.D. 10/26/2019 6:02 PM Dictated: 10/26/191757 Transcribed: 10/26/191757 XR chest 2V PA/lateral CLINICAL HISTORY: post ppm with RV lead over Left bundle region COMPARISON STUDY: Chest radiograph October 26, 2019. FINDINGS: There is no pneumothorax following placement of a dual lead left subclavian pacemaker. Lead tips project over the right atrial appendage and the right ventricle. Cardiomegaly is noted. There is no evidence for pulmonary edema. There is no consolidation. IMPRESSION: No pneumothorax following placement of a dual-lead left subclavian pacemaker. ACT 112: Negative or not required by law. Electronically signed by: Montana Greenwood M.D. 10/28/2019 8:05 AM Dictated: 10/28/19801 Transcribed: 10/28/19801 Hospital Course (1) Sick sinus syndrome: Recurrent Syncope Symptomatic Bradycardia CT head no acute intracranial abnormality Carotid doppler showed elevated peak systolic velocities within the proximal bilateral internal carotid arteries suggestive of 50-69% stenosis. ECHO showed LV wall motion is normal. EF 56 to 70% Cardio on board S/P day 1 pacemaker placement done by Dr. Gutierrez CXR today showed no pneumothorax following placement of a dual-lead left subclavian pacemaker. Continue to avoid AV lior blocking agents Case discussed with cardiology and ok from cardiology standpoint to discharge home today Follow up for device and wound check in [facility] on Friday11/02/2019 at 3:30pm Clinically stable Carotid Stenosis Carotid doppler showed elevated peak systolic velocities within the proximal bilateral internal carotid arteries suggestive of 50-69% stenosis. Result of the carotid doppler discussed with patient Recommended outpatient monitor with his provider in [place] Consider to add aspirin 81mg daily once pacemaker wound/incision resolves Hypophosphatemia Replace phosphate Monitor Flulike symptoms COVID-19 screen negative Rhino PCR detected Pt is asymptomatic Continue droplet precaution Hypertension Stable Will resume lisinopril in am DVT Px: Heparin SQ Code Status Full Code Disposition Discharge home today Follow up with your PCP in [place] Follow up with cardiology next week Total Time Total Time Spent Total Time Spent (In Minutes): 35 minutes Total Time Includes: Examination of the Patient, Discharge Planning, Medication Reconciliation, Communication With Other Providers and Other Discharge Plan Discharge Items Patient Disposition: Home - Self-Care Reason For Visit: SYNCOPE,BRADYCARDIA Discharge Diagnosis: Sinus Pause Recurrent Syncope Symptomatic Bradycardia Hypophosphatemia Flulike symptoms Hypertension Activity: As commented below Activity Comment: do not raise the left elbow over the left shoulder for 1 month Lifting: No more than 10 pounds Lifting Comment: do not lift more than 10 pounds with the left arm for 2 weeks Bathing: Keep incision dry Bathing Comment: keep dressing on and dry until your wound check next week Sexual Activity: After two weeks Non-emergency contact: Primary Care Provider and Online Journalist Call non-emergency contact if: you have any medication questions and your temperature is above 101 Follow-up/Referrals: PCP,NO [Primary Care Provider] - Diet: Heart Healthy Addtl Attending Provider Instructions: Follow up with your primary care provider in [place] Follow up for device and wound check in [facility] on Friday11/02/2019 at 3:30pm Ok to take Tylenol as needed for the pain Don't drive until your doctor says it's OK. OK to shower tomorrow Do not lift the left elbow over the left shoulder for 1 month Do not lift no more than 10 lbs for 1 week Do not stretch your arm behind your back for as long as directed by your doctor. Keep incision area clean and dry Check your incision area for signs of infection (redness, swelling, drainage, or warmth). Before you receive any treatment, tell all healthcare providers (including your dentist) that you have a pacemaker. Keep your cell phone away from your pacemaker. Don't carry the phone in your s devang pocket overlying the pacemaker, even when it's turned off. Avoid strong magnets If you order for an MRI in the future, please inform that you have a pacemaker Pending Studies at Discharge: No Stand-Alone Forms: My [facility], Smoking Cessation Medications and DC Order Prescriptions: New doxycycline hyclate 100 mg Capsule 100 mg PO BID 3 Days Qty: 6 RF: 0 Continued acetaminophen [Tylenol] 325 mg Tablet 650 mg PO QAM RF: 0 meloxicam 15 mg Tablet 15 mg PO QAM RF: 0 lisinopril 40 mg Tablet 40 mg PO QAM RF: 0 Discharge Orders: Discharge Order (Routine); Ordered 10/28/19 Ordered By: Richard Stewart Admission Data Admit Date/Time: 10/26/19 14:15 Attending Provider: Richard Stewart Admit Provider: Sigifredo Shahid Primary Care Provider: PCP,NO Other Providers: Sigifredo Shahid ; Fabián Zavala Other Interventions: Discharge Summary Assessment (RN) Last Done: 10/28/19 10:29 DC Date/Time DO NOT enter until pt leaves facility: 10/28/19 13:44
--- NOTE | 2019-11-11 07:23 | Operative Report (OR) ---
DATE OF OPERATION: 10/27/2019 PREOPERATIVE DIAGNOSIS: Syncope with sinus arrest. POSTOPERATIVE DIAGNOSIS: Syncope with sinus arrest. PROCEDURE: Dual chamber rate responsive permanent pacemaker with the RV lead over the left bundle region under fluoroscopic guidance along with peripheral venogram and intracardiac mapping of the His bundle region under fluoroscopic guidance. SURGEON: Maria Fernanda Gutierrez DO. ASSISTANTS: None. ANESTHESIA: Monitored conscious sedation administered under my supervision by Kelly Herbert. Start time 13:40, end time 15:35, a total of 5 mg of Versed and 125 mcg of fentanyl. INTRAVENOUS FLUIDS: 393 mL of normal saline. ANTIBIOTICS: Two grams of Ancef. CONTRAST: 25 mL of Optiview. BLOOD LOSS: 20 mL. URINE OUTPUT: Not applicable. SPECIMENS: None. FINDINGS: See below. DRAINS: None. INDICATIONS: This is a 49-year-old gentleman who is visiting family from [place] when he had recurrent syncope and so ended up presenting to the Emergency Room, He had a recurrent episode and on telemetry was found to have marked sinus arrest, so he was recommended a pacemaker prior to going home. CONSENT: Consent was obtained prior to the patient going into the electrophysiology lab. The patient was informed of the risks, benefits and alternative procedure. Risks include but not limited to sudden cardiac , cardiac arrhythmias, cerebrovascular accident, myocardial infarction, injury to the blood vessels, chamber of the heart, lung, bleeding, and infection. The patient understood these risks and agreed with procedure as planned. Informed consent was obtained. DESCRIPTION OF THE PROCEDURE: The patient was brought into electrophysiology lab in fasting state. He was connected to continuous cardiac monitoring. A timeout was performed to ensure patient identity and procedure correctly. The patient was prepped and draped over the left infraclavicular space in normal surgical standard fashion. Monitored conscious sedation was given throughout the procedure for patient's comfort level. Bureau precautions were maintained throughout the procedure. He received prophylactic antibiotics prior to incision. 10 mL 1% lidocaine, bupivacaine mixture were given in the left deltopectoral groove. Incision was made in left deltopectoral groove. Blunt dissection performed down to identify the cephalic vein; however, none could be identified, so peripheral venogram was used to identify the axillary vein. Venous axillary access was obtained through a needlestick without any problems. The guidewire was inserted without any resistance. An 8-Togolese sheath was inserted over the retained guidewire without any resistance. Dilator was removed and a second guidewire was inserted through the 8-Togolese sheath to allow for retained venous access. The sheath was removed, flushed, dilator reinserted over it and it was reinserted along the guidewires. The guidewire and dilator were removed. Then, the preformed HIS preformed curved sheath was advanced into right atrium over a Glidewire. The Glidewire and dilator were removed. Then, the lead was advanced through this sheath, an intracardiac mapping was performed to identify the His bundle region. The AH was found to be 73 and the HV was 63. I then noted where the His bundle region was on fluoroscopy and then marked about 2 cm down from that and an imaginary line from the apex of the heart to have an idea of where I was going to put the LV lead and this was all done in WILSON 30. I then advanced my sheath around 2 cm below the his and then looked in AIDE 30 to turn the catheter until it was up on the septum. I then monitored my electrogram looking specifically at V1 as well as stim to peak QRS in V6 and I screwed the lead in to the septum a few times and then kept checking to watch see QRS changed morphology to a more right bundle picture and watch the extended QRS in V5 decreased. I then gave a puff of contrast through the sheath to see that I was up against the septum. There was adequate pacing and sensing thresholds and we had acceptable, although not ideal morphology on the surface leads that although it was not exact left bundle capture, there was some nonselective of the septum and it was excellent functional RV lead, so the preformed J sheath was then slit under fluoroscopic guidance. I left a short 8-Togolese sheath, and I advanced another 6-Togolese sheath over the retained guidewire. Guidewire and dilator removed and the right atrial lead was advanced into right atrium and positioned interatrial appendage under fluoroscopic guidance. There was adequate pacing and sensing thresholds and no diaphragmatic stimulation with high output pacing. The sheath was slit and the lead was fixated to pectoralis muscle using 0 silk suture. Then I slit the other 8-Togolese sheath that was over the left bundle lead. The lead was then fixated to the pectoralis muscle using 0 silk suture. The pacemaker pocket was created using blunt dissection over the pectoralis muscle within the pectoralis fascia. Then, the leads were attached to the pacemaker making sure that the pins were in appropriate position, passed set screws and set screws were all tightened. The pacemaker was then placed in the body, making sure that the leads were lying flat beneath the device and a stay stitch using 0 silk suture was used to secure the device to the pectoralis muscle. The incision was then closed in 3-layer fashion using 2-0 Vicryl interrupted suture followed by a 3-0 Vicryl interrupted suture followed by a 4-0 Monocryl running stitch. Dermabond was applied followed then by a Telfa and micropore dressing. EQUIPMENTS: 1. Pulse generator is a [employer] Sabrina XT DR AMARI Landis [id number], serial number [id number]. 2. Right atrial lead Medtronic 5076-52 cm, serial [id number]. 3. Right ventricular lead, Medtronic 3830-69 cm, serial number [id number]. INTRAOPERATIVE TESTIN. Right atrial lead: P waves 4.4 millivolts, impedance 745 ohms, threshold 0.4 volts at 0.5 milliseconds. 2. Right ventricular lead positioned in the left bundle, R waves 9 millivolts, impedance 747 ohms, threshold 0.7 volts at 0.5 milliseconds. FINAL MEASUREMENTS THROUGH THE DEVICE: 1. Right atrial lead: P waves 4 millivolts, impedance 532 ohms, threshold 0.2 volts at 0.4 milliseconds. 2. Left ventricular lead: R-wave 10.9 millivolts, impedance 836 ohms, threshold 0.5 volts at 0.4 milliseconds. FINAL PARAMETERS: MVP 60/150, right atrial amplitude 3.5 volts, pulse width 0.4 milliseconds, sensitivity 0.3 millivolts. Right ventricular amplitude 3.5 volts, pulse width 0.4 milliseconds, sensitivity 0.9 millivolts. IMPRESSION: Successful dual chamber rate responsive permanent pacemaker under fluoroscopic guidance with peripheral venogram and intracardiac His bundle EGM mapping under fluoroscopic guidance implantation secondary to syncope, sinus arrest. (The RV lead was positioned in the left bundle region). PLAN: Monitor patient overnight, 12-lead ECG, chest x-ray. He cannot lift left elbow or left shoulder for 1 month. He cannot lift more than 10 pounds with the left arm for 2 weeks. He is to leave the dressing on and dry until his wound check next week. I attest to the content of the Intraoperative Record and any orders documented therein. Any exceptions are noted below. MTDD
== END 2019-10-28 13:44 | disposition home or self-care (01) | DRG 244 ==
LOC: ED 12:03 → 1E 14:15 → SUATTDRO 14:15 → 1E 15:14 → 2S 10-28 06:41